=== PATIENT | female | born 1965 | race Caucasian/White ===

== ENCOUNTER 2024-10-17 20:07 | Emergency (ER) | payer SELFPAY ==
[~2024-10-17] VITALS: Ht 160 cm; Wt 59.4 kg
[2024-10-17] MEDS ORDERED: ZOLOFT100 MG PO (20:37)
[2024-10-17] MEDS ORDERED: Ondansetron Hydrochloride 4 MG/2 ML VIAL IV ONE (21:20)
[2024-10-17] MEDS ORDERED: SODIUM CHLORIDE 0.9% 1,000 ML IV ONE (21:20)
[2024-10-17 21:59] LABS: BASO # 0.0 10*3/uL (0.0-0.1); BASO % 0.5 % (0.0-1.0); EOS # 0.1 10*3/uL (0.0-0.4); EOS % 1.0 % (1.0-4.0); MEAN CELL VOLUME 95.0 fl (81.0-99.0); MEAN CORPUSCULAR HGB 30.2 pg (27.0-31.0); MEAN PLATELET VOLUME 8.6 fl (9.6-12.3); MONO # 0.5 10*3/uL (0.1-1.0); MONO % 6.7 % (3.0-9.0); NEUT # 4.6 10*3/uL (2.3-7.9); NEUT % 62.8 % (47.0-73.0); NUCLEATED RED BLOOD CELL 0.0 % (0.0-0.0); NUCLEATED RED BLOOD CELL 0.0 10*3/uL (0.0-0.0); PLATELET COUNT AUTOMATED 209 10*3/uL (130-400); RED CELL DISTRI WIDTH 12.9 % (0-14.5)
[2024-10-17 22:15] LABS: BUN 13 mg/dl (9-23)
[2024-10-17] MEDS ORDERED: diazePAM 10 MG/2 ML SYR IV ONE (23:50)
[2024-10-18] MEDS ORDERED: DRAMAMINE LESS25 MG PO (00:10)
== END 2024-10-18 00:22 | disposition home or self-care (01) ==
LOC: ED 20:07 → EDBD 20:11 → ED 10-18 00:22
PROVIDERS: Emergency Medicine
DX: R42 Dizziness and giddiness (principal); R11.2 Nausea with vomiting, unspecified; Z79.899 Other long term (current) drug therapy